=== PATIENT | female | born 1950 | race Caucasian/White ===

== ENCOUNTER 2017-01-05 03:53 | Emergency (ER) | payer OTHER ==
[~2017-01-05] VITALS: Ht 160 cm; Wt 89.4 kg
[~2017-01-05 03:53] MED LIST: ATIVAN; LEXAPRO20 MG PO
[2017-01-05 05:23] LABS: CHLORIDE 105 mEq/L (99-109); POTASSIUM 4.5 mEq/L (3.7-5.4); SODIUM 138 mEq/L (136-147)
[2017-01-05 05:25] LABS: GLUCOSE 115 mg/dL (70-99)
[2017-01-05 05:26] LABS: ANION GAP 11 MEQ/L (2-14)
[2017-01-05 05:27] LABS: TOTAL BILIRUBIN 0.5 mg/dL (0.0-1.0)
[2017-01-05 05:28] LABS: HEMATOCRIT 44.4 % (36.0-46.0); MCH 29.1 PG (29.0-34.0); MCHC 33.3 G/DL (30.0-36.0); MCV 87.2 FL (83-99); MEAN PLAT.VOLUME 9.7 uM^3 (9.5-12.4); PLATELET COUNT 208 K/uL (156-360); RBC DIS.WIDTH-CV 13.9 % (11.8-14.6); RBC DIS.WIDTH-SD 44.7 % (39-53); RED BLOOD COUNT 5.09 M/uL (3.80-5.20); WHITE BLOOD COUNT 6.7 K/uL (4.1-10.2)
[2017-01-05 05:29] LABS: ALKALINE PHOSPHATASE 104 IU/L (3-129); GFR ESTIMATE (CALCULATED) > 59 mL/min/
[2017-01-05 05:30] LABS: UREA NITROGEN (BUN) 16 mg/dL (9-23)
[2017-01-05 05:32] LABS: LIPASE 31 U/L (1.0-51.0)
[2017-01-05] MEDS ORDERED: PEPCID20 MG PO (05:58)
[2017-01-05 06:13] VITALS: BP 147/71
== END 2017-01-05 06:14 | disposition home or self-care (01) ==
LOC: EME 03:53
PROVIDERS: Emergency Medicine
DX: R13.10 Dysphagia, unspecified (principal); Z86.73 Personal history of transient ischemic attack (TIA), and cerebral infarction without residual deficits; F32.9 Major depressive disorder, single episode, unspecified; Z90.49 Acquired absence of other specified parts of digestive tract; Z88.1 Allergy status to other antibiotic agents; Z88.0 Allergy status to penicillin; Z91.013 Allergy to seafood; Z91.041 Radiographic dye allergy status; Z87.891 Personal history of nicotine dependence
CPT/HCPCS: 70360; 71020; 80053; 83690; 85027; 87651 90; 99281; 99285; J2405; J7030